=== PATIENT | female | born 1955 | race Caucasian/White ===

== ENCOUNTER → 2017-12-02 | Outpatient (CLI) | payer OTHER ==
[~2017-12-02] MED LIST: ACID CONTROL75 MG PO; ALENDRONATE SOD35 MG PO; AMITIZA24 MICROGR PO; Ascorbic Acid,Ester- PO; Cascara Sagrada PO; DULCOLAX10 MG PR; FLEXERIL10 MG PO; IBUPROFEN600 MG PO; KEFLEX500 MG PO; LIDODERM 5% P1 PATCH TD; METAMUCIL PACKE1 PKT PO; MIRALAX17 GM PO; NEURONTIN300 MG PO; NOHOMEMEDS; Oyst-Cal D, Oscal W/ PO; PYRIDIUM200 MG PO; RANITIDINE HCL150 M1 PO; SENOKOT S,PE1 TABLET PO; THERAGRAN1 TABLET PO; Tylenol Regular Stre PO; ULTRAM50 MG PO; VICODIN 5-3001 EACH PO; VITAMIN D31000 UNIT PO; ZOFRAN4 MG PO
== END | disposition home or self-care (01) ==
LOC: CDC 08:31
DX: Z01.810 Encounter for preprocedural cardiovascular examination (principal); J98.4 Other disorders of lung; R94.31 Abnormal electrocardiogram [ECG] [EKG]
CPT/HCPCS: 93000

== ENCOUNTER 2017-12-06 05:37 | Day surgery (SDC) | payer OTHER ==
[~2017-12-06] VITALS: Ht 160 cm; Wt 75.2 kg
[2017-12-06 06:04] VITALS: BP 134/70
[2017-12-06] MEDS ORDERED: NORCO 5/3251 TABLET PO (09:43)
[2017-12-06] MEDS ORDERED: MOTRIN600 MG PO (09:43)
[2017-12-06 12:23] VITALS: BP 117/66
[2017-12-06 13:09] VITALS: BP 118/60
== END 2017-12-06 13:40 | disposition home or self-care (01) ==
LOC: SDC
DX: N83.201 Unspecified ovarian cyst, right side (principal); N80.3 Endometriosis of pelvic peritoneum; N95.2 Postmenopausal atrophic vaginitis; K66.0 Peritoneal adhesions (postprocedural) (postinfection); K21.9 Gastro-esophageal reflux disease without esophagitis
CPT/HCPCS: 88108; 88305; J0131; J0330; J1100; J1170; J1885; J2250; J2405; J2550; J2710; J2765; J7643; Q0175; S0020